=== PATIENT | female | born 1945 | race Caucasian/White ===

== ENCOUNTER 2017-01-09 10:16 | Inpatient (IN) | payer OTHER ==
[~2017-01-09] VITALS: Ht 160 cm; Wt 98.2 kg
[2017-01-09 11:11] LABS: EOSINOPHIL (%) 0.4 % (0-5); HEMATOCRIT 41.3 % (36.0-46.0); IMMATURE GRANULOCYTE (%) 0.4 % (0.0-0.7); INSTRUMENT ABS NEUTROPHIL CT 7.7 K/uL; LYMPHOCYTE COUNT 2.7 K/uL (1.0-2.8); MCH 27.9 PG (29.0-34.0); MCHC 32.4 G/DL (30.0-36.0); MEAN PLAT.VOLUME 10.7 uM^3 (9.5-12.4); MONOCYTE (%) 6.3 % (3-12); MONOCYTE COUNT 0.7 K/uL (0-0.8); NEUTROPHIL (%) 68.5 % (45-76); NEUTROPHIL COUNT 7.7 K/uL (1.8-6.4); PLATELET COUNT 351 K/uL (156-360); RBC DIS.WIDTH-CV 13.7 % (11.8-14.6); WHITE BLOOD COUNT 11.2 K/uL (4.1-10.2)
[2017-01-09 11:23] LABS: CHLORIDE 103 mEq/L (99-109); SODIUM 140 mEq/L (136-147)
[2017-01-09 11:24] LABS: MAGNESIUM 2.1 mg/dL (1.3-2.7)
[2017-01-09 11:25] LABS: GLUCOSE 100 mg/dL (70-99)
[2017-01-09 11:26] LABS: ANION GAP 16 MEQ/L (2-14)
[2017-01-09 11:29] LABS: GFR ESTIMATE (CALCULATED) 47 mL/min/
[2017-01-09 11:30] LABS: UREA NITROGEN (BUN) 23 mg/dL (9-23)
[2017-01-09 12:05] LABS: ERTH.SED.RATE 39 MM/HR (0-30)
[2017-01-09 12:28] LABS: ADD MIUA? YES; BILIRUBIN NEGATIVE; BLOOD SMALL; COLOR YELLOW ((YELLOW)); GLUCOSE (STRIP) NEGATIVE; KETONES NEGATIVE; LEUKOCYTES SMALL; NITRITE NEGATIVE; PROTEIN (STRIP) NEGATIVE; UROBILINOGEN 0.2 MG/DL (0.2-1.0)
[2017-01-09] MEDS ORDERED: CEPHALEXIN500 MG PO (12:41)
[2017-01-09] MEDS ORDERED: ALPRAZOLAM1 MG PO (12:42)
[2017-01-09] MEDS ORDERED: ATORVASTATIN CA40 MG PO (12:43)
[2017-01-09] MEDS ORDERED: NIFEDIPINE ER30 MG PO (12:43)
[2017-01-09] MEDS ORDERED: HYDROCHLOROTHIA25 MG PO (12:43)
[2017-01-09] MEDS ORDERED: LOSARTAN POTAS100 MG PO (12:44)
[2017-01-09] MEDS ORDERED: PROAIR HFA8.5 GM IH (12:44)
[2017-01-09 12:46] LABS: BACTERIA RARE /HPF; EPITHELIAL CELLS 3+ /HPF; MUCUS NONE SEEN /LPF; RED BLOOD CELLS 0-5 /HPF (0-5); UCUL ADDED? NO
[2017-01-09] MEDS ORDERED: VITAMIN D33000 UNIT PO (12:46)
[2017-01-09 17:26] VITALS: BP 148/80
[2017-01-09 20:04] VITALS: BP 130/60
[2017-01-09 23:59] VITALS: BP 127/56
[2017-01-10 04:30] VITALS: BP 129/60
[2017-01-10 06:05] LABS: FASTING STATUS NONFASTING
[2017-01-10 06:33] LABS: HDL CHOLESTEROL 39 MG/DL (Desirable>=50); LDL CHOLESTEROL 78 mg/dL (Desirable<100); NON-HDL CHOLESTEROL 129 mg/dL (Desirable<160); TOTAL CHOLESTEROL 168 mg/dL (Desirable<200); TRIGLYCERIDES 257 MG/DL (Normal: <150)
[2017-01-10 08:00] VITALS: BP 142/63
[2017-01-10 12:00] VITALS: BP 163/71
[2017-01-10 12:15] LABS: MAGNESIUM 2.1 mg/dl (1.3-2.7)
[2017-01-10 12:28] LABS: POINT-OF-CARE METER ID UU14188625
[2017-01-10 17:32] VITALS: BP 134/64
[2017-01-10 20:30] VITALS: BP 188/79
[2017-01-10 22:03] VITALS: BP 167/80
[2017-01-11 00:22] VITALS: BP 145/66
[2017-01-11 03:05] VITALS: BP 123/57
[2017-01-11 06:01] LABS: BASOPHIL COUNT 0.1 K/uL (0-0.1); EOSINOPHIL (%) 0.7 % (0-5); EOSINOPHIL COUNT 0.1 K/uL (0-0.3); HEMATOCRIT 37.4 % (36.0-46.0); IMMATURE GRANULOCYTE (%) 0.4 % (0.0-0.7); INSTRUMENT ABS NEUTROPHIL CT 6.6 K/uL; LYMPHOCYTE COUNT 2.8 K/uL (1.0-2.8); MCHC 32.6 G/DL (30.0-36.0); MEAN PLAT.VOLUME 10.8 uM^3 (9.5-12.4); MONOCYTE (%) 7.8 % (3-12); MONOCYTE COUNT 0.8 K/uL (0-0.8); NEUTROPHIL (%) 63.4 % (45-76); NEUTROPHIL COUNT 6.6 K/uL (1.8-6.4); PLATELET COUNT 339 K/uL (156-360); RBC DIS.WIDTH-SD 44.1 % (39-53); RED BLOOD COUNT 4.35 M/uL (3.80-5.20); WHITE BLOOD COUNT 10.4 K/uL (4.1-10.2)
[2017-01-11 06:24] LABS: ALKALINE PHOSPHATASE 59 IU/L (3-129); ANION GAP 12 MEQ/L (2-14); CHLORIDE 105 MEQ/L (99-109); GFR ESTIMATE (CALCULATED) 43 mL/min/; GLUCOSE 96 mg/dL (70-99); POTASSIUM 4.1 MEQ/L (3.7-5.4); SAMPLE HEMOLYSIS CHECK 0; SAMPLE ICTERIC CHECK 0; SAMPLE LIPEMIA CHECK 0; SODIUM 141 MEQ/L (136-147); TOTAL BILIRUBIN 0.5 MG/DL (0.0-1.0); UREA NITROGEN (BUN) 26 mg/dL (9-23)
[2017-01-11 07:33] LABS: Estimated Average Glucose 123 mg/dL (70-123); HEMOGLOBIN A1c (GLYCOHEMOGLOB) 5.9 % HGB (Below 5.7)
[2017-01-11 07:45] VITALS: BP 120/84
[2017-01-11 11:19] VITALS: BP 165/73
[2017-01-11 11:36] VITALS: BP 153/59
[2017-01-11 11:39] VITALS: BP 153/80
[2017-01-11] MEDS ORDERED: ASPIR-LOW81 MG PO (11:50)
[2017-01-11] MEDS ORDERED: HYDROCHLOROTHIA25 MG PO (16:42)
[2017-01-11] MEDS ORDERED: TYLENOL REGULA325 MG PO (16:47)
== END 2017-01-11 15:54 | DRG 65 ==
LOC: EME 10:16 → EDOF 13:13 → 5SOUTH 15:18
PROVIDERS: Emergency Medicine; Hospitalist
DX: I63.511 Cerebral infarction due to unspecified occlusion or stenosis of right middle cerebral artery (principal); I47.2 Ventricular tachycardia; I10 Essential (primary) hypertension; E78.5 Hyperlipidemia, unspecified; H53.40 Unspecified visual field defects; I25.10 Atherosclerotic heart disease of native coronary artery without angina pectoris; I49.5 Sick sinus syndrome; F41.9 Anxiety disorder, unspecified; E66.9 Obesity, unspecified; Z68.38 Body mass index [BMI] 38.0-38.9, adult; Z88.0 Allergy status to penicillin; Z88.1 Allergy status to other antibiotic agents; Z82.49 Family history of ischemic heart disease and other diseases of the circulatory system
CPT/HCPCS: 70450; 70551; 80048; 80053; 80061; 81003; 82948; 83036; 83735; 85025; 85651; 93005; 93306; 93880; 99281; 99285; J2060; J7120; S0028

== ENCOUNTER 2017-01-11 15:28 | Inpatient (IN) | payer OTHER ==
[~2017-01-11] VITALS: Ht 160 cm; Wt 99.1 kg
[~2017-01-11 15:28] MED LIST: ALPRAZOLAM1 MG PO; ASPIR-LOW81 MG PO; ATORVASTATIN CA40 MG PO; CEPHALEXIN500 MG PO; HYDROCHLOROTHIA25 MG PO; LOSARTAN POTAS100 MG PO; NIFEDIPINE ER30 MG PO; PROAIR HFA8.5 GM IH; VITAMIN D33000 UNIT PO
[2017-01-11 16:04] VITALS: BP 166/73
[2017-01-11] MEDS ORDERED: HYDROCHLOROTHIA25 MG PO (16:42)
[2017-01-11] MEDS ORDERED: TYLENOL REGULA325 MG PO (16:47)
[2017-01-11 18:23] LABS: HEMATOCRIT 40.3 % (36.0-46.0); MCH 28.4 PG (29.0-34.0); MCHC 32.5 G/DL (30.0-36.0); MCV 87.2 FL (83-99); MEAN PLAT.VOLUME 10.9 uM^3 (9.5-12.4); PLATELET COUNT 373 K/uL (156-360); RBC DIS.WIDTH-CV 14.3 % (11.8-14.6); RBC DIS.WIDTH-SD 45.5 % (39-53); RED BLOOD COUNT 4.62 M/uL (3.80-5.20); WHITE BLOOD COUNT 10.7 K/uL (4.1-10.2)
[2017-01-11 18:44] LABS: ALKALINE PHOSPHATASE 61 IU/L (3-129); ANION GAP 12 MEQ/L (2-14); CHLORIDE 103 MEQ/L (99-109); GFR ESTIMATE (CALCULATED) 39 mL/min/; GLUCOSE 84 mg/dL (70-99); POTASSIUM 3.8 MEQ/L (3.7-5.4); SAMPLE HEMOLYSIS CHECK 0; SAMPLE ICTERIC CHECK 0; SAMPLE LIPEMIA CHECK 0; SODIUM 140 MEQ/L (136-147); TOTAL BILIRUBIN 0.4 MG/DL (0.0-1.0); UREA NITROGEN (BUN) 30 mg/dL (9-23)
[2017-01-12] VITALS: BP 121/55
[2017-01-12 04:43] VITALS: BP 125/53
[2017-01-12 15:29] VITALS: BP 132/52
[2017-01-13 05:55] VITALS: BP 118/58
[2017-01-13 15:19] VITALS: BP 140/61
[2017-01-14 04:42] VITALS: BP 127/62
[2017-01-14 15:18] VITALS: BP 144/63
[2017-01-15 05:06] VITALS: BP 121/60
[2017-01-15 16:32] VITALS: BP 131/58
[2017-01-16 04:40] VITALS: BP 130/58
[2017-01-16 15:03] VITALS: BP 127/59
[2017-01-17 05:45] VITALS: BP 143/58
[2017-01-17 15:46] VITALS: BP 123/58
[2017-01-18 05:23] VITALS: BP 121/58
[2017-01-18 06:40] LABS: HEMATOCRIT 38.3 % (36.0-46.0); MCH 28.3 PG (29.0-34.0); MCHC 32.4 G/DL (30.0-36.0); MCV 87.4 FL (83-99); PLATELET COUNT 332 K/uL (156-360); RBC DIS.WIDTH-CV 14.2 % (11.8-14.6); RBC DIS.WIDTH-SD 45.3 % (39-53); RED BLOOD COUNT 4.38 M/uL (3.80-5.20); WHITE BLOOD COUNT 8.8 K/uL (4.1-10.2)
[2017-01-18 07:07] LABS: ALKALINE PHOSPHATASE 59 IU/L (3-129); ANION GAP 9 MEQ/L (2-14); CHLORIDE 105 MEQ/L (99-109); GFR ESTIMATE (CALCULATED) 43 mL/min/; GLUCOSE 84 mg/dL (70-99); POTASSIUM 4.1 MEQ/L (3.7-5.4); SAMPLE HEMOLYSIS CHECK 0; SAMPLE ICTERIC CHECK 0; SAMPLE LIPEMIA CHECK 0; SODIUM 141 MEQ/L (136-147); TOTAL BILIRUBIN 0.4 MG/DL (0.0-1.0); UREA NITROGEN (BUN) 32 mg/dL (9-23)
[2017-01-18 15:00] VITALS: BP 134/54
[2017-01-19 05:39] VITALS: BP 122/57
== END 2017-01-19 12:47 | disposition home or self-care (01) | DRG 57 ==
LOC: 3WEST 15:28
PROVIDERS: Physical Medicine & Rehabilitation Pain Medicine; Psychiatry & Neurology Neurology
PROC: F07M0ZZ Range of Motion and Joint Mobility Treatment of Musculoskeletal System - Whole Body (ICD-10-PCS; principal; 2017-01-11)
DX: I69.352 Hemiplegia and hemiparesis following cerebral infarction affecting left dominant side (principal); R41.4 Neurologic neglect syndrome; H53.462 Homonymous bilateral field defects, left side; E78.5 Hyperlipidemia, unspecified; I10 Essential (primary) hypertension; I25.10 Atherosclerotic heart disease of native coronary artery without angina pectoris; I27.2 Other secondary pulmonary hypertension; I34.0 Nonrheumatic mitral (valve) insufficiency; H54.7 Unspecified visual loss; F41.9 Anxiety disorder, unspecified; Z79.82 Long term (current) use of aspirin; Z88.0 Allergy status to penicillin; Z88.5 Allergy status to narcotic agent
CPT/HCPCS: 80053; 85027; 92523 GN; 92610 GN; 97110 GO; 97112 GP; 97530 GP; 99202; J1650